=== PATIENT | male | born 1965 | race African-American/Black ===

== ENCOUNTER 2018-09-16 15:47 | Emergency (ER) | payer MEDICAID ==
[~2018-09-16] VITALS: Ht 180.3 cm; Wt 80.7 kg
[2018-09-16 15:56] VITALS: Ht 180.3 cm; Wt 80.7 kg
[2018-09-16 16:53] VITALS: BP 134/87
== END 2018-09-16 16:52 | disposition home or self-care (01) ==
LOC: ED 15:47
DX: S33.5XXA Sprain of ligaments of lumbar spine, initial encounter (principal); S00.03XA Contusion of scalp, initial encounter; R03.0 Elevated blood-pressure reading, without diagnosis of hypertension; V43.52XA Car driver injured in collision with other type car in traffic accident, initial encounter; Y93.I9 Activity, other involving external motion; Y92.411 Interstate highway as the place of occurrence of the external cause; Y99.8 Other external cause status